=== PATIENT | female | born 1995 | race African-American/Black ===

== ENCOUNTER 2021-05-25 12:42 | Emergency (ER) | payer SELFPAY ==
[~2021-05-25] VITALS: Ht 165.1 cm; Wt 127.6 kg
[2021-05-25 12:47] VITALS: BP 131/88
[2021-05-25] MEDS ORDERED: ONDANSETRON ODT 4 MG ONE (13:26)
[2021-05-25 13:29] LABS: BASOPHILS % (AUTO) 1 % (0-1); EOSINOPHILS % (AUTO) 3 % (1-7); LYMPHOCYTES % (AUTO) 30 % (22-44); MEAN CORPUSCULAR HEMOGLOBIN 27.4 pg (27.0-34.8); MEAN CORPUSCULAR HGB CONC 32.5 g/dL (32.4-35.8); MEAN PLATELET VOLUME 7.8 fL (7.4-10.4); MONOCYTES % (AUTO) 3 % (2-9); NEUTROPHILS % (AUTO) 63 % (42-75); PLATELET COUNT 353 x10^3/uL (130-400); RED BLOOD COUNT 4.05 x10^6/uL (3.82-5.3); RED CELL DISTRIBUTION WIDTH 16.4 % (9.6-15.2)
[2021-05-25] MEDS ORDERED: ONDANSETRON ODT 8 MG ONE (13:29)
[2021-05-25] MEDS ORDERED: ONDANSETRON ODT 8 MG PO ONE (13:30)
[2021-05-25 13:37] LABS: ALANINE AMINOTRANSFERASE 16 U/L (12-78); ALBUMIN 2.8 g/dL (3.4-5.0); ANION GAP 4 mmol/L (5-15); CALCIUM 8.5 mg/dL (8.5-10.1); CHLORIDE 110 mmol/L (98-107); CREATININE 0.62 mg/dL (0.55-1.02)
[2021-05-25 13:39] LABS: ALKALINE PHOSPHATASE 98 U/L (45-117); BILIRUBIN,TOTAL 0.2 mg/dL (0.2-1.0); TOTAL PROTEIN 6.5 g/dL (6.4-8.2)
--- NOTE | 2021-05-25 13:47 | NUR ---
PT TO US
[2021-05-25 13:51] LABS: MICROSCOPIC INDICATED
--- NOTE | 2021-05-25 14:17 | NUR ---
PT RETURNED FROM US
--- NOTE | 2021-05-25 14:41 | NUR ---
Patient given discharge instructions and they have confirmed that they understand the instructions. Patient ambulatory with steady gait.
== END 2021-05-25 15:19 | disposition home or self-care (01) ==
LOC: ED 15:13
DX: O26.891 Other specified pregnancy related conditions, first trimester (principal); R10.11 Right upper quadrant pain; F17.210 Nicotine dependence, cigarettes, uncomplicated; Z3A.01 Less than 8 weeks gestation of pregnancy
CPT/HCPCS: 36415; 76801; 80053; 81001; 85025; 99284; Q0162